=== PATIENT | female | born 2000 ===

== ENCOUNTER → 2019-10-16 | Outpatient (CLI) | payer OTHER ==
--- NOTE | 2019-10-16 12:19 | WOMENS IMAGING REPORT ---
EXAM DESCRIPTION: U/S BREAST UNILAT LIMITED COMPLETED DATE/TIME: 10/16/2019 11:47 am REASON FOR STUDY: N64.4 MASTODYNIA COMPARISON: None. TECHNIQUE: Real-time and static grayscale imaging performed of the right breast targeted to the area of clinical/mammographic concern, lower outer quadrant from 6 to 9 o'clock location. Selected color Doppler images recorded. LIMITATIONS: None. FINDINGS: MASS: No mass identified. Normal glandular tissue. OTHER: No other significant finding. IMPRESSION: No suspicious findings detected by ultrasound. BIRAD: 1 Negative. RECOMMENDATION: RECOMMENDED FOLLOW-UP: Follow-up as clinically indicated. COMMENT: The [employer] ([employer]) has developed recommendations for screening MRI of the breasts in certain patient populations, to be used in conjunction with mammography. Breast MRI s urveillance may be appropriate for women with more than 20% lifetime risk of developing breast cancer as determined by genetic testing, significant family history of the disease, or history of mantle r adiation for Hodgkins Disease. [employer] Practice Guidelines 2008. TECHNICAL DOCUMENTATION: JOB ID: [id number] 2010 [employer]- All Rights Reserved Reading location - IP/workstation name: [email or web address]
== END ==
LOC: WI 11:25
PROVIDERS: ATTEND Advanced Practice Midwife
DX: N64.4 Mastodynia (principal)
CPT/HCPCS: 76642